=== PATIENT | male | born 1980 | race Caucasian/White ===

== ENCOUNTER 2023-06-01 22:26 | Emergency (ER) | payer OTHER, SELFPAY ==
[2023-06-01 22:42] VITALS: BP 135/90; PULSE 72; RESP 18; TEMP 36.6; O2SAT 100; BMI 21.5
--- NOTE | 2023-06-01 22:57 | XR_ITS ---
[place] [id number] Patient Name: TRACY DOUGLASS MRN: [id number] date: 1980 Sex: M Assigned Patient Location: ER Current Patient Location: ER Accession/Order Number: [id number] Exam Date: 06/01/2023 23:33 Report Date: 06/02/2023 01:21 At the request of: CHARLES HELLER Procedure: XR chest 1V EXAM: XR chest 1V HISTORY: syncope COMPARISON: None available TECHNIQUE: Single frontal view chest x-ray FINDINGS: Right venous catheter distal tip at the right atrial caval junction. No lung consolidation, large pleural effusions, pneumothorax, or acute bony abnormality. Cardiac size is unremarkable. XR/XR chest 1V IMPRESSION: No radiographic evidence for acute chest abnormality. Electronically authenticated by: TONE CUBA Date: 06/02/2023 01:21
--- NOTE | 2023-06-01 22:57 | ECG_ITS ---
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
[2023-06-01 23:02] VITALS: PULSE 69; PULSE 81; O2SAT 100
--- NOTE | 2023-06-01 23:13 | ED_ITS ---
HPI - General Adult General Chief complaint: Seizure Stated complaint: KIDNEY FAILURE, POSS SEIZURE Time Seen by Provider: 06/01/23 22:57 History of Present Illness HPI narrative: Patient presented to the emergency department for evaluation The syncopal episode that occurred today at 3 PM. Family states the patient has a history of diabetes. Patient is legally blind. The patient is an end-stage renal disease patient on hemodialysis Saturday and Fridays. He finished his dialysis yest erday. 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 Patient was sitting outside with the family all day today and they state he became pale and passed out as if he was not responding but he was breathing. Then subsequently woke up and vomited one time. He did not have any hematemesis. He has not had any diarrhea. He has not had any fever, or chills or cough. He denies any chest pain, shortness of breath. He denies any headaches. They state they took his blood pressure and it was low for him at the time but when EMS arrived they checked his blood pressure, they did an EKG and they checked his sugar and everything was fine. The patient did not want to be evaluated. After they talked to the patient's nurse they were told that maybe his electrolytes were off so they came in for evaluation. Currently the patient does not have any complaints. She has not had a syncopal episode in the past. He denies any palpitations. He denies pain anywhere. Related Data Allergies Allergy/AdvReac Type Severity Reaction Status Date / Time No Known Drug Allergies Allergy Verified 06/01/23 22:49 Review of Systems ROS Status of ROS 10 or more systems reviewed and unremarkable except as noted in history and below [facility] Social History Smoking status: Former smoker Exam Narrative Exam Narrative: Nurses notes and vital signs reviewed and patient is not hypoxic. General: Nontoxic, chronic ill, and in no apparent distress. Skin: Warm, dry,mild pallor noted. No Rash Head: Normocephalic, atraumatic. Neck: Supple, non-tender. Eye: Pupils are equal, round Sluggish. No scleral icterus. Ears, Nose, Mouth, and Throat: TM clear, no posterior oropharynx erythema or nasal mucosal hypertrophy, uvula is mid-line Oral mucosa is moist Cardiovascular: Regular Rate and Rhythm without murmur, gallop or rub. Respiratory: No accessory muscle use or respiratory distress. Lungs are clear to auscultation, no wheezing, rales or rhonchi Chest Wall: no tenderness, Left subclavian port in place, without signs of infection Back: No midline thoracic or lumbar vertebral tenderness. No CVA tenderness Musculoskeletal: normal ROM, no calf or popliteal tenderness, no lower extremity edema/swelling GI: Abdomen is soft, non-distended. Normal bowel sounds. No tenderness to palpation. No rebound, guarding, or rigidity noted. Neurological: A&O x4. No cranial nerve dysfunction observed. No truncal ataxia. Moves all extremities. Sensation intact. Psychiatric: Cooperative and interactive. Normal mood and affect. Constitutional Vital Signs, click to edit/add: Last Vital Signs Temp 98 F 06/01/23 22:42 Pulse 69 06/01/23 23:02 Resp 18 06/01/23 22:42 BP 135/90 06/01/23 22:42 Pulse Ox 100 06/01/23 23:02 O2 Del Method Room Air 06/01/23 22:42 Course Vital Signs Vital signs: Vital Signs Temperature 98 F 06/01/23 22:42 Pulse Rate 72 06/01/23 22:42 Respiratory Rate 18 06/01/23 22:42 Blood Pressure 135/90 06/01/23 22:42 Pulse Oximetry 100 06/01/23 22:42 Oxygen Delivery Method Room Air 06/01/23 22:42 Temperature 98 F 06/01/23 22:42 Pulse Rate 69 06/01/23 23:02 Respiratory Rate 18 06/01/23 22:42 Blood Pressure 135/90 06/01/23 22:42 Pulse Oximetry 100 06/01/23 23:02 Oxygen Delivery Method Room Air 06/01/23 22:42 Medical Decision Making MDM Narrative Medical decision making narrative: Patient nontoxic, His at his baseline mentally. Patient does not have any focal complaints. Patient's family member who is a DRAGLINE OILER is confident that the patient did not have any seizure activity. Lab studies were done. Patient abnormalities are consistent with his renal failure but there is nothing acute. pt will fu with nephrology regarding hemoglobin.At this time the patient is without objective evidence of an acute process requiring hospitalization or inpatient management. The patient has remained hemodynamically stable. No additional indication for emergent studies at this time. I answered all questions. Discussed discharge instructions including standard anticipatory guidance and what should prompt a return to the emergency department, including if they get worse are not getting better or develops any new or concerning symptoms. I've given them specific time frame in which to follow-up, and who to follow-up with. The patient demonstrates understanding. Patient is nontoxic and stable for discharge with outpatient follow-up. This note was created with the assistance of a speech recognition program. Although the intention is to generate documents that actually reflects the content of the visit, no guarantees can be provided that every mistake has been identified and corrected by editing. Lab Data Lab results reviewed: Yes I reviewed the patient's lab results Labs: Lab Results 06/01/23 06/01/23 06/01/23 Range/Units 01:18 20:55 22:55 WBC 8.6 (4.0-11.0) 10^3/uL RBC 2.28 L (4.70-6.10) 10^6/uL Hgb 7.5 L (14.0-18.0) g/dL Hct 22.3 L* (42.0-54.0) % MCV 97.8 H (80.0-94.0) fL MCH 32.9 (25.9-34.0) pg MCHC 33.6 (29.9-35.2) g/dL RDW 13.1 (11.0-15.0) % Plt Count 291 (150-450) 10^3/uL MPV 9.6 (9.5-13.5) fL Neut % (Auto) 73.2 (43.0-75.0) % Lymph % (Auto) 15.2 L (20.5-60.0) % [place] % (Auto) 8.3 (1.7-12.0) % Eos % (Auto) 2.2 (0.9-7.0) % Baso % (Auto) 0.6 (0.2-2.0) % Neut # (Auto) 6.3 (1.4-6.5) 10^3/uL Lymph # (Auto) 1.3 (1.2-3.8) 10^3/uL [place] # (Auto) 0.7 (0.3-0.8) 10^3/uL Eos # (Auto) 0.2 (0.0-0.7) 10^3/uL Baso # (Auto) 0.1 (0.0-0.1) 10^3/uL Abs Immat Gran (auto) 0.04 H (0.00-0.03) 10^3/uL Imm/Tot Granulo (auto) 0.5 (0.0-0.5) % PT 9.9 (9.0-11.6) sec INR 0.93 APTT 24.2 (22.3-36.2) sec Sodium 134 L (136-145) mmol/L Potassium 3.5 (3.5-5.1) mmol/L Chloride 96 L (98-107) mmol/L Carbon Dioxide 35.2 H (21.0-32.0) mmol/L Anion Gap 6.3 BUN 51.0 H (7.0-18.0) mg/dL Creatinine 5.61 H* (0.70-1.30) mg/dL Est GFR ( Amer) 14 L (>=60) Est GFR (Non-Af Amer) 11 L (>=60) BUN/Creatinine Ratio 9.1 Glucose 314 H (74-106) mg/dL Lactate 1.2 (0.4-2.0) mmol/L Calcium 8.8 (8.5-10.1) mg/dL Magnesium 2.6 H (1.8-2.4) mg/dL Total Bilirubin 0.2 (0.2-1.0) mg/dL AST 16 (15-37) U/L ALT 8 L (16-63) U/L Alkaline Phosphatase 40 L (46-116) U/L Troponin I High Sens 15.1 (4.0-76.1) pg/mL Total Protein 6.0 L (6.4-8.2) g/dL Albumin 3.1 L (3.4-5.0) g/dL Globulin 2.9 g/dL Albumin/Globulin Ratio 1.1 Urine Color Yellow (YELLOW) Urine Clarity Clear (CLEAR) Urine pH 6.0 (5.0-9.0) Ur Specific [place] 1.025 (1.005-1.025) Urine Protein >=300 A (NEG/TRACE) mg/dL Urine Glucose (UA) 100 A (NEGATIVE) mg/dL Urine Ketones Trace A (NEGATIVE) mg/dL Urine Occult Blood Negative (NEGATIVE) Urine Nitrite Negative (NEGATIVE) Urine Bilirubin Negative (NEGATIVE) Urine Urobilinogen 0.2 (0.2-1.0) EU/dL Ur Leukocyte Esterase Negative (NEGATIVE) Ethanol Quant <3 mg/dL ECG Data Attestation: I personally reviewed and interpreted this ECG as follows: Discharge Plan Discharge Chief Complaint: Seizure Clinical Impression: Syncope, Vomiting, Anemia Patient Disposition: Home, Self-Care Time of Disposition Decision: 01:30 Condition: Good Mode of Transportation: Private Vehicle Instructions: Syncope (ED), Anemia (ED) Stand Alone Forms: Portal Instructions
[2023-06-01 23:23] LABS: Basophils Absolute Auto 0.1 10^3/uL (0.0-0.1); Basophils Percent Auto 0.6 % (0.2-2.0); Eosinophils Absolute Auto 0.2 10^3/uL (0.0-0.7); Eosinophils Percent Auto 2.2 % (0.9-7.0); Hemoglobin 7.5 g/dL (14.0-18.0); Immature Granulocytes Abs Auto 0.04 10^3/uL (0.00-0.03); Immature Granulocytes Pct Auto 0.5 % (0.0-0.5); Lymphocytes Absolute Auto 1.3 10^3/uL (1.2-3.8); Lymphocytes Percent Auto 15.2 % (20.5-60.0); Mean Corpuscular HGB Conc 33.6 g/dL (29.9-35.2); Mean Corpuscular Hemoglobin 32.9 pg (25.9-34.0); Mean Corpuscular Volume 97.8 fL (80.0-94.0); Mean Platelet Volume 9.6 fL (9.5-13.5); Monocytes Absolute Auto 0.7 10^3/uL (0.3-0.8); Monocytes Percent Auto 8.3 % (1.7-12.0); Neutrophils Absolute Auto 6.3 10^3/uL (1.4-6.5); Neutrophils Percent Auto 73.2 % (43.0-75.0); Platelet Count 291 10^3/uL (150-450); Red Blood Count 2.28 10^6/uL (4.70-6.10); Red Cell Distribution Width 13.1 % (11.0-15.0); White Blood Count 8.6 10^3/uL (4.0-11.0)
[2023-06-01 23:30] LABS: Hematocrit 22.3 % (42.0-54.0)
[2023-06-01 23:41] LABS: Lactate/Lactic Acid 1.2 mmol/L (0.4-2.0)
[2023-06-01 23:47] LABS: INR 0.93; Partial Thromboplastin Time 24.2 sec (22.3-36.2); Prothrombin Time 9.9 sec (9.0-11.6)
[2023-06-01 23:48] LABS: Alanine Aminotransferase 8 U/L (16-63); Albumin Globulin Ratio 1.1; Albumin Level 3.1 g/dL (3.4-5.0); Alkaline Phosphatase 40 U/L (46-116); Anion Gap 6.3; Aspartate Amino Transferase 16 U/L (15-37); BUN Creatinine Ratio 9.1; Bilirubin Total 0.2 mg/dL (0.2-1.0); Calcium 8.8 mg/dL (8.5-10.1); Carbon Dioxide 35.2 mmol/L (21.0-32.0); Chloride 96 mmol/L (98-107); Estimated GFR (African America 14 (>=60); Estimated GFR (Non-African Ame 11 (>=60); Globulin 2.9 g/dL; Glucose 314 mg/dL (74-106); Magnesium 2.6 mg/dL (1.8-2.4); Potassium 3.5 mmol/L (3.5-5.1); Sodium 134 mmol/L (136-145); Troponin I High Sensitivity 15.1 pg/mL (4.0-76.1)
[2023-06-01 23:50] LABS: Ethanol <3 mg/dL
[2023-06-01] MEDS: 0.9 % SODIUM CHLORIDE 1,000 ML 250 ML IV (23:51)
[2023-06-02 01:27] LABS: Bilirubin Urine NEGATIVE (NEGATIVE); Blood Urine NEGATIVE (NEGATIVE); Clarity Urine CLEAR (CLEAR); Color Urine YELLOW (YELLOW); Glucose Urine UA 100 mg/dL (NEGATIVE); Ketones Urine TRACE mg/dL (NEGATIVE); Leukocyte Esterase Urine NEGATIVE (NEGATIVE); Nitrite Urine NEGATIVE (NEGATIVE); Protein Urine >=300 mg/dL (NEG/TRACE); Specific Gravity Urine 1.025 (1.005-1.025); Urobilinogen Urine 0.2 EU/dL (0.2-1.0)
[2023-06-02 01:28] LABS: Urine Microscopic Indicated YES
[2023-06-02 01:38] LABS: Bacteria Urine MODERATE #/HPF (NONE SEEN); Cast Seen? NONE SEEN #/LPF (NONE SEEN); Crystals Seen? None Seen #/HPF (None Seen); Mucus Urine NONE SEEN (NONE SEEN); RBC Urine 0-2 #/HPF (0-2); Squamous Epithelial Cell Urine RARE #/LPF (NONE/RARE); Urine Culture Indicated YES; WBC Urine 0-2 #/HPF (NONE SEEN)
[2023-06-02 01:40] LABS: Amphetamine Screen Urine NEGATIVE (NEGATIVE); Barbiturates Screen Urine NEGATIVE (NEGATIVE); Benzodiazepines Screen Urine NEGATIVE (NEGATIVE); Buprenorphine Screen Urine NEGATIVE (NEGATIVE); Cannabinoid Screen Urine POSITIVE (NEGATIVE); Cocaine Screen Urine NEGATIVE (NEGATIVE); Methadone Screen Urine NEGATIVE (NEGATIVE); Methamphetamines Screen Urine NEGATIVE (NEGATIVE); Opiate Screen Urine NEGATIVE (NEGATIVE); Oxycodone Screen Urine NEGATIVE (NEGATIVE); Phencyclidine Screen Urine NEGATIVE (NEGATIVE); Tricyclic Antidepressant Urine NEGATIVE (NEGATIVE)
[2023-06-02 01:53] VITALS: BP 146/77; PULSE 81; RESP 12; O2SAT 100
== END 2023-06-02 01:56 | disposition home or self-care (01) ==
PROVIDERS: Emergency Provider Emergency Medicine
DX: R55 Syncope and collapse (principal); R11.10 Vomiting, unspecified; D64.9 Anemia, unspecified; H54.8 Legal blindness, as defined in USA; E11.22 Type 2 diabetes mellitus with diabetic chronic kidney disease; N18.6 End stage renal disease; Z99.2 Dependence on renal dialysis; Z87.891 Personal history of nicotine dependence
CPT/HCPCS: 36415; 71045; 80053; 80307; 80320; 81001; 83605; 83735; 84484; 85025; 85610; 85730; 87086; 93005; 99285

== ENCOUNTER 2023-06-04 12:52 | Outpatient (OUT) | payer OTHER, SELFPAY ==
--- NOTE | 2023-06-04 14:12 | CA_ITS ---
Patient: TRACY DOUGLASS Exam Date: 06/04/2023 : 1980 Gender:M Ordering : STAR BECERRIL Admission #: [id number] Family : Order #: [id number] CLICK HERE TO VIEW EXAM ECHOCARDIOGRAM REPORT PROCEDURE: CA ECHO DOPPLER COMPLETE INDICATIONS: Hypertensive chronic kidney disease, Shortness of breath COMPARISON: None. DESCRIPTION: COMPLETE ECHOCARDIOGRAM Real-time transthoracic echocardiography with 2D, M-mode, spectral and color flow Doppler performed. QUALITY: Technical quality was excellent. LEFT VENTRICLE: Normal chamber size. Severe concentric left ventricular hypertrophy. LV EF: Global left ventricular systolic function is hyperdynamic. Calculated left ventricular ejection fraction is 69% DIASTOLIC: Diastolic function is indeterminate. ATRIAL SEPTUM: Inadequately seen. LEFT ATRIUM: Moderate dilatation. RIGHT ATRIUM: Mild dilatation. Tip of dialysis catheter is visualized in the right atrium. RIGHT VENTRICLE: Normal chamber size. Normal right ventricular systolic function. TRICUSPID VALVE: Normal mobility and thickness. No stenosis with trivial regurgitation. No evidence of pulmonary hypertension. RVSP 29mmHg MITRAL VALVE: Normal mobility and thickness. No evidence of mitral valve stenosis. There is no mitral annular calcification. Mild mitral regurgitation. AORTIC VALVE: Normal trileaflet appearance. No visible sclerosis. Normal leaflet mobility. No evidence of aortic valve stenosis. No aortic regurgitation. AORTIC ROOT: Normal diameter and appearance. PULMONIC VALVE: Normal thickness and mobility. No stenosis. Trivial regurgitation. PERICARDIUM: Small, posterior pericardial effusion. IVC: Collapses with inspirations. Normal size. CONCLUSION: 1. Global left ventricular systolic function is hyperdynamic; visually estimated ejection fraction is 65 to 70%. No wall motion abnormalities. 2. Severe left ventricular hypertrophy. 3. Diastolic function is indeterminate. 4. Biatrial enlargement. 5. The right ventricle is normal in size and systolic function. 6. Mild mitral regurgitation. 7. A small posterior pericardial effusion is seen. Adult Echocardiography Procedure Report Left Ventricle LVEDD (3.7 - 5.6 cm): 4.14 cm LVESD (2.2 - 4.0 cm): 2.93 cm LVIVS thickness (0.6 - 1.2 cm): 1.45 cm, 1.54 cm LVPW thickness (0.5 - 1.0 cm): 1.65 cm e': 0.08 m/s E - e': 8.22 LVOT Max Gradient: 6.00 mm[Hg] LVOT Area (cm2): 1.22 m/s Peak Velocity (LVOT): 1.22 m/s Mean Velocity (LVOT): 0.79 m/s LVOT Diameter 2.13 cm Left Ventricular Ejection Fraction: 69.30 % Left Atrium LA Volume Index (2D A2C): 51.02 ml/m2 Left Atrium Systolic Dimension: 3.47 cm Mitral Valve MV E to A Ratio: 1 Mitral Valve A-Wave Peak Velocity: 0.68 m/s Mitral Valve E-Wave Peak Velocity: 0.68 m/s Right Ventricle RV Internal Diastolic Dimension: 3.38 cm Aorta AO Root Diam: 3.16 cm Ascending Ao Diam: 2.97 cm Aortic Valve AoV Area ([place]): 2.84 cm2, 2.84 cm2 AoV Area (VTI): 2.77 cm2, 2.77 cm2 Peak Velocity(Antegrade Flow): 1.53 m/s Peak Gradient(Antegrade Flow): 9.38 mm[Hg] Mean Velocity(Antegrade Flow): 1.03 m/s Mean Gradient(Antegrade Flow): 4.86 mm[Hg] Velocity Time Integral: 29.71 cm Tricuspid Valve Peak Velocity (Regurgitant Flow): 2.37 m/s, 2.25 m/s, 2.55 m/s Pulmonic Valve Mean Gradient: 2.03 mm[Hg] Mean Velocity: 0.68 m/s Peak Velocity: 0.91 m/s, 1.00 m/s Peak Gradient: 3.28 mm[Hg], 4.04 mm[Hg] Right Atrium Right Atrium Systolic Pressure: 38.63 ml, 38.63 ml Dictated by: Gloria Mon M.D. on 06/04/2023 at 15:41 Approved by: Gloria Mon M.D. on 06/04/2023 at 15:46
== END 2023-06-04 12:53 | disposition home or self-care (01) ==
LOC: CARD 12:53
PROVIDERS: Visit Provider Internal Medicine Cardiovascular Disease
DX: I12.0 Hypertensive chronic kidney disease with stage 5 chronic kidney disease or end stage renal disease (principal); R06.02 Shortness of breath; I34.0 Nonrheumatic mitral (valve) insufficiency
CPT/HCPCS: 93306; 93356

== ENCOUNTER 2023-06-19 16:37 | Emergency (ER) | payer OTHER, SELFPAY ==
[2023-06-19] VITALS (39 sets, daily range): BP systolic 138–207; BP diastolic 68–99; PULSE 62–103; RESP 0–24; TEMP 37.1; O2SAT 98–100; BMI 22.2
--- NOTE | 2023-06-19 16:49 | ED_ITS ---
HPI - General Adult General Chief complaint: Headache Stated complaint: HEADACHE post diaylsis Time Seen by Provider: 06/19/23 16:49 History of Present Illness HPI narrative: Presents to emergency department complaining of a headache. Patient developed a headache in the right side which he always gets when he gets dialysis done. Patient has been on hemodialysis since May 21. And end-stage renal disease secondary to hypertension. 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 Butcher. He gets dialysis and Fridays. Today he was getting his dialysis and because of the cephalgia was so severe he stopped it after 2 hours and half. They told him they could not continue HD and sent him to the emergency department. He took 2 g of Tylenol prior to coming in. He has some nausea denies any vomiting. Family member states the patient has had a headache every time while she is on dialysis. He is supposed to have an MRI and other testing done as an outpatient. He has taken all of his antihypertensive medications. denies any fever, chills, or cough. Related Data Allergies Allergy/AdvReac Type Severity Reaction Status Date / Time No Known Drug Allergies Allergy Verified 06/01/23 22:49 Review of Systems ROS Status of ROS 10 or more systems reviewed and unremarkable except as noted in history and below [facility] Social History Smoking status: Former smoker Exam Narrative Exam Narrative: Nurses notes and vital signs reviewed and patient is not hypoxic. General: Nontoxic, and in no apparent distress. Skin: Warm, dry, no pallor noted. No Rash Head: Normocephalic, atraumatic. Neck: Supple, non-tender. Eye: Pupils are equal, round and EOMI. No scleral icterus. Ears, Nose, Mouth, and Throat: TM clear, no posterior oropharynx erythema or nasal mucosal hypertrophy, uvula is mid-line Oral mucosa is moist Cardiovascular: Regular Rate and Rhythm without murmur, gallop or rub. Respiratory: No accessory muscle use or respiratory distress. Lungs are clear to auscultation, no wheezing, rales or rhonchi Chest Wall:A subclavian port without any signs of infection. Back: No midline thoracic or lumbar vertebral tenderness. No CVA tenderness Musculoskeletal: normal ROM, no calf or popliteal tenderness, no lower extremity edema/swelling GI: Abdomen is soft, non-distended. Normal bowel sounds. No masses appreciated. No tenderness to palpation. No rebound, guarding, or rigidity noted. Neurological: A&O x4. No cranial nerve dysfunction observed. No truncal ataxia. Moves all extremities. Sensation intact. Psychiatric: Cooperative and interactive. Normal mood and affect. Constitutional Vital Signs, click to edit/add: Last Vital Signs Temp 98.7 F 06/19/23 16:47 Pulse 76 06/19/23 18:39 Resp 14 06/19/23 18:39 BP 207/90 H 06/19/23 18:03 Pulse Ox 100 06/19/23 18:39 Course Vital Signs Vital signs: Vital Signs Temperature 98.7 F 06/19/23 16:47 Pulse Rate 62 06/19/23 16:47 Respiratory Rate 18 06/19/23 16:47 Blood Pressure 168/84 H 06/19/23 16:47 Pulse Oximetry 100 06/19/23 16:47 Temperature 98.7 F 06/19/23 16:47 Pulse Rate 76 06/19/23 18:39 Respiratory Rate 14 06/19/23 18:39 Blood Pressure 207/90 H 06/19/23 18:03 Pulse Oximetry 100 06/19/23 18:39 Medical Decision Making MDM Narrative Medical decision making narrative: CT scan of the brain is unremarkable. Patient was given morphine and normal saline running at 100 mils per hour. Patient called out stated he was still in severe pain. He was given Dilaudid 1 mg IV. Hydralazine was ordered for hypertension. Patient will be signed out at the end of my shift to Dr. Alvarez awaiting labs, BP recheck, Reevaluation, and disposition. Medical Records Medical records reviewed: Yes I reviewed the patient's medical records Lab Data Lab results reviewed: Yes I reviewed the patient's lab results Labs: Lab Results 06/19/23 Range/Units 17:20 WBC 6.0 (4.0-11.0) 10^3/uL RBC 3.25 L (4.70-6.10) 10^6/uL Hgb 10.3 L (14.0-18.0) g/dL Hct 32.5 L (42.0-54.0) % MCV 100.0 H (80.0-94.0) fL MCH 31.7 (25.9-34.0) pg MCHC 31.7 (29.9-35.2) g/dL RDW 12.7 (11.0-15.0) % Plt Count 270 (150-450) 10^3/uL MPV 8.8 L (9.5-13.5) fL Neut % (Auto) 51.1 (43.0-75.0) % Lymph % (Auto) 32.6 (20.5-60.0) % [place] % (Auto) 9.8 (1.7-12.0) % Eos % (Auto) 4.8 (0.9-7.0) % Baso % (Auto) 1.2 (0.2-2.0) % Neut # (Auto) 3.1 (1.4-6.5) 10^3/uL Lymph # (Auto) 2.0 (1.2-3.8) 10^3/uL [place] # (Auto) 0.6 (0.3-0.8) 10^3/uL Eos # (Auto) 0.3 (0.0-0.7) 10^3/uL Baso # (Auto) 0.1 (0.0-0.1) 10^3/uL Abs Immat Gran (auto) 0.03 (0.00-0.03) 10^3/uL Imm/Tot Granulo (auto) 0.5 (0.0-0.5) % Sodium 134 L (136-145) mmol/L Potassium 3.3 L (3.5-5.1) mmol/L Chloride 98 (98-107) mmol/L Carbon Dioxide 27.5 (21.0-32.0) mmol/L Anion Gap 11.8 BUN 28.0 H (7.0-18.0) mg/dL Creatinine 3.62 H (0.70-1.30) mg/dL Est GFR ( Amer) 23 L (>=60) Est GFR (Non-Af Amer) 19 L (>=60) BUN/Creatinine Ratio 7.7 Glucose 106 (74-106) mg/dL Calcium 9.0 (8.5-10.1) mg/dL Total Bilirubin 0.3 (0.2-1.0) mg/dL AST 25 (15-37) U/L ALT 27 (16-63) U/L Alkaline Phosphatase 56 (46-116) U/L Total Protein 7.1 (6.4-8.2) g/dL Albumin 3.7 (3.4-5.0) g/dL Globulin 3.4 g/dL Albumin/Globulin Ratio 1.1 ECG Data Attestation: I personally reviewed and interpreted this ECG as follows: Discharge Plan Discharge Chief Complaint: Headache Clinical Impression: Hypertension, Headache, End stage kidney disease Patient Disposition: Still a Patient Referrals: Physician,Non-Staff, MD [Primary Care Provider] - 1 week
--- NOTE | 2023-06-19 16:54 | ECG_ITS ---
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
--- NOTE | 2023-06-19 17:06 | CT_ITS ---
The [address] [address] Patient Name: TRACY DOUGLASS MRN: [id number] date: 1980 Sex: M Assigned Patient Location: ER Current Patient Location: ER Accession/Order Number: [id number] Exam Date: 06/19/2023 17:52 Report Date: 06/19/2023 18:37 At the request of: CHARLES HELLER Procedure: CT head/brain wo con EXAM: CT head/brain wo con HISTORY: cephalgia COMPARISON: None. TECHNIQUE: Axial CT scans through the head were obtained without IV contrast administration. Dose reduction techniques were achieved by using: automated exposure control and/or adjustment of mA and /or kV according to patient size and/or use of iterative reconstruction technique. FINDINGS: There is no acute intracranial hemorrhage or abnormal extra-axial fluid collection. No mass effect or midline shift is seen. There is no evidence of large acute territorial infarction. There is no hydrocephalus. To the limit of CT, the posterior fossa appears unremarkable. The calvaria and extra cranial soft tissues are unremarkable. The visualized orbits show no abnormal mass. The visualized paranasal sinuses show no air-fluid level. Mastoid air cells are clear. CT/CT head/brain wo con IMPRESSION: No acute intracranial process. Electronically authenticated by: ASTER FOWLER Date: 06/19/2023 18:37
[2023-06-19] MEDS: PROMETHAZINE HCL 25 MG/ML VIAL IV (17:31)
[2023-06-19] MEDS: MORPHINE SULFATE 2 MG/ML SYRINGE 4 MG IV (17:31)
[2023-06-19] MEDS: 0.9 % SODIUM CHLORIDE 1,000 ML 100 ML IV (17:32)
[2023-06-19 17:37] LABS: Basophils Absolute Auto 0.1 10^3/uL (0.0-0.1); Basophils Percent Auto 1.2 % (0.2-2.0); Eosinophils Absolute Auto 0.3 10^3/uL (0.0-0.7); Eosinophils Percent Auto 4.8 % (0.9-7.0); Hematocrit 32.5 % (42.0-54.0); Hemoglobin 10.3 g/dL (14.0-18.0); Immature Granulocytes Abs Auto 0.03 10^3/uL (0.00-0.03); Immature Granulocytes Pct Auto 0.5 % (0.0-0.5); Lymphocytes Percent Auto 32.6 % (20.5-60.0); Mean Corpuscular HGB Conc 31.7 g/dL (29.9-35.2); Mean Corpuscular Hemoglobin 31.7 pg (25.9-34.0); Mean Platelet Volume 8.8 fL (9.5-13.5); Monocytes Absolute Auto 0.6 10^3/uL (0.3-0.8); Monocytes Percent Auto 9.8 % (1.7-12.0); Neutrophils Absolute Auto 3.1 10^3/uL (1.4-6.5); Neutrophils Percent Auto 51.1 % (43.0-75.0); Platelet Count 270 10^3/uL (150-450); Red Blood Count 3.25 10^6/uL (4.70-6.10); Red Cell Distribution Width 12.7 % (11.0-15.0)
--- NOTE | 2023-06-19 17:39 | PC.NURSE ---
this rn in room at this time to start iv on pt, girlfriend at bedside states pt has a chest port already he doesn't need an iv they can given him medications through chest port pt instructed that the port is strictly used for dialysis and shouldn't be used to administer other medications. pt girlfriend states that pt normally needs 4000mg of tylenol to help headache go away .
[2023-06-19 17:47] LABS: Alanine Aminotransferase 27 U/L (16-63); Albumin Globulin Ratio 1.1; Albumin Level 3.7 g/dL (3.4-5.0); Alkaline Phosphatase 56 U/L (46-116); Anion Gap 11.8; Aspartate Amino Transferase 25 U/L (15-37); BUN Creatinine Ratio 7.7; Bilirubin Total 0.3 mg/dL (0.2-1.0); Carbon Dioxide 27.5 mmol/L (21.0-32.0); Chloride 98 mmol/L (98-107); Estimated GFR (African America 23 (>=60); Estimated GFR (Non-African Ame 19 (>=60); Globulin 3.4 g/dL; Glucose 106 mg/dL (74-106); Potassium 3.3 mmol/L (3.5-5.1); Sodium 134 mmol/L (136-145); Total Protein 7.1 g/dL (6.4-8.2)
[2023-06-19] MEDS: HYDRALAZINE HCL 20 MG/ML VIAL 10 MG IVP (18:52)
[2023-06-19] MEDS: HYDROMORPHONE HCL 0.5 MG/0.5 ML SYRINGE 1 MG IV (18:53)
--- NOTE | 2023-06-19 21:06 | ED_ITS ---
HPI - General Adult General Chief complaint: Headache Stated complaint: HEADACHE post diaylsis Time Seen by Provider: 06/19/23 16:49 Source: patient Mode of arrival: Wheelchair Limitations: no limitations Related Data Allergies Allergy/AdvReac Type Severity Reaction Status Date / Time No Known Drug Allergies Allergy Verified 06/01/23 22:49 [facility] Social History Smoking status: Former smoker Exam Constitutional Vital Signs, click to edit/add: Last Vital Signs Temp 98.7 F 06/19/23 16:47 Pulse 70 06/19/23 19:00 Resp 14 06/19/23 19:00 BP 156/71 H 06/19/23 19:00 Pulse Ox 99 06/19/23 19:00 Course Vital Signs Vital signs: Vital Signs Temperature 98.7 F 06/19/23 16:47 Pulse Rate 62 06/19/23 16:47 Respiratory Rate 18 06/19/23 16:47 Blood Pressure 168/84 H 06/19/23 16:47 Pulse Oximetry 100 06/19/23 16:47 Temperature 98.7 F 06/19/23 16:47 Pulse Rate 70 06/19/23 19:00 Respiratory Rate 14 06/19/23 19:00 Blood Pressure 156/71 H 06/19/23 19:00 Pulse Oximetry 99 06/19/23 19:00 Medical Decision Making [facility] Narrative Medical decision making narrative: care was transferred at change of shift. Patient past history of IDDM type II. hemodialysis patient. States for the past 3-4 weeks every time he completes dialysis he develops a migraine headache and his BP increases. Dr Mcmullen ordered CT brain that was neg for any acute findings and medicated him for his BP and headache. I went in to talk to the patient and he informed he is now feeling better. They have set up an appointment with a neurologist. His BP is now normal. he is advised to keep the appointment with neurology Lab Data Labs: Lab Results 06/19/23 Range/Units 17:20 WBC 6.0 (4.0-11.0) 10^3/uL RBC 3.25 L (4.70-6.10) 10^6/uL Hgb 10.3 L (14.0-18.0) g/dL Hct 32.5 L (42.0-54.0) % MCV 100.0 H (80.0-94.0) fL MCH 31.7 (25.9-34.0) pg MCHC 31.7 (29.9-35.2) g/dL RDW 12.7 (11.0-15.0) % Plt Count 270 (150-450) 10^3/uL MPV 8.8 L (9.5-13.5) fL Neut % (Auto) 51.1 (43.0-75.0) % Lymph % (Auto) 32.6 (20.5-60.0) % [place] % (Auto) 9.8 (1.7-12.0) % Eos % (Auto) 4.8 (0.9-7.0) % Baso % (Auto) 1.2 (0.2-2.0) % Neut # (Auto) 3.1 (1.4-6.5) 10^3/uL Lymph # (Auto) 2.0 (1.2-3.8) 10^3/uL [place] # (Auto) 0.6 (0.3-0.8) 10^3/uL Eos # (Auto) 0.3 (0.0-0.7) 10^3/uL Baso # (Auto) 0.1 (0.0-0.1) 10^3/uL Abs Immat Gran (auto) 0.03 (0.00-0.03) 10^3/uL Imm/Tot Granulo (auto) 0.5 (0.0-0.5) % Sodium 134 L (136-145) mmol/L Potassium 3.3 L (3.5-5.1) mmol/L Chloride 98 (98-107) mmol/L Carbon Dioxide 27.5 (21.0-32.0) mmol/L Anion Gap 11.8 BUN 28.0 H (7.0-18.0) mg/dL Creatinine 3.62 H (0.70-1.30) mg/dL Est GFR ( Amer) 23 L (>=60) Est GFR (Non-Af Amer) 19 L (>=60) BUN/Creatinine Ratio 7.7 Glucose 106 (74-106) mg/dL Calcium 9.0 (8.5-10.1) mg/dL Total Bilirubin 0.3 (0.2-1.0) mg/dL AST 25 (15-37) U/L ALT 27 (16-63) U/L Alkaline Phosphatase 56 (46-116) U/L Total Protein 7.1 (6.4-8.2) g/dL Albumin 3.7 (3.4-5.0) g/dL Globulin 3.4 g/dL Albumin/Globulin Ratio 1.1 Discharge Plan Discharge Chief Complaint: Headache Clinical Impression: Hypertension, Headache, End stage kidney disease, Migraine Patient Disposition: Home, Self-Care Instructions: Acute Headache (ED) Additional Instructions: follow up with Neurology as planned Stand Alone Forms: Portal Instructions Referrals: Physician,Non-Staff, MD [Primary Care Provider] - 1 week
== END 2023-06-19 21:22 | disposition home or self-care (01) ==
PROVIDERS: Emergency Medicine; Emergency Provider Internal Medicine
DX: G43.909 Migraine, unspecified, not intractable, without status migrainosus (principal); I12.0 Hypertensive chronic kidney disease with stage 5 chronic kidney disease or end stage renal disease; N18.6 End stage renal disease; Z99.2 Dependence on renal dialysis; Z87.891 Personal history of nicotine dependence; E11.22 Type 2 diabetes mellitus with diabetic chronic kidney disease
CPT/HCPCS: 36415; 70450; 80053; 85025; 93005; 96374; 96375; 99285; J1170

== ENCOUNTER 2023-06-25 10:58 | Outpatient (RCR) | payer OTHER, SELFPAY | END 2023-06-26 16:29 | disposition home or self-care (01) | LOC: OT 10:58 | DX: R53.1 Weakness (principal); E11.3299 Type 2 diabetes mellitus with mild nonproliferative diabetic retinopathy without macular edema, unspecified eye | CPT/HCPCS: 97166; 97530 ==

== ENCOUNTER 2023-07-04 07:12 | Outpatient (RCR) | payer OTHER, SELFPAY | END 2023-07-05 16:50 | disposition home or self-care (01) | LOC: PT 07:12 | DX: R53.1 Weakness (principal); E11.3299 Type 2 diabetes mellitus with mild nonproliferative diabetic retinopathy without macular edema, unspecified eye | CPT/HCPCS: 97110; 97161 ==